=== PATIENT | female | born 1990 | race Caucasian/White ===

== ENCOUNTER 2017-08-05 20:35 | Emergency (ER) | payer OTHER ==
--- NOTE | 2017-08-05 22:27 | ER Document Report ---
ED Medical Screen (RME) - General Chief Complaint: Vaginal Bleeding Stated Complaint: VAGINAL BLEEDING Time Seen by Provider: 08/05/17 22:25 Mode of Arrival: Ambulatory Information source: Patient Notes: 27-year-old female presented ED for complaint of vaginal bleeding. She states she is 6 weeks and had a test done at [facility]. She states she started spotting on Wednesday it was just pink. Then last night she had some pink vaginal drainage again and that stopped tonight around 6 PM she started having red vaginal bleeding she has not yet soaked 1 pad. She states she has not had a ultrasound done this time. She states she is supposed to be 6 weeks . I have greeted and performed a rapid initial assessment of this patient. A comprehensive ED assessment and evaluation of the patient, analysis of test results and completion of medical decision making process will be conducted by an additional ED providers. TRAVEL OUTSIDE OF THE [place] IN LAST 30 DAYS: No - Related Data Allergies/Adverse Reactions: No Known Allergies Allergy (Verified 08/05/17 20:40) Past Medical History - Immunizations Immunizations up to date: Yes Hx Diphtheria, Pertussis, Tetanus Vaccination: Yes Physical Exam - Vital signs Vitals: Temp Pulse Resp BP Pulse Ox 98.9 F 83 20 132/76 H 100 08/05/17 21:11 08/05/17 21:11 08/05/17 21:11 08/05/17 21:11 08/05/17 21:11 Course - Vital Signs Vital signs: Temp Pulse Resp BP Pulse Ox 98.9 F 83 20 132/76 H 100 08/05/17 21:11 08/05/17 21:11 08/05/17 21:11 08/05/17 21:11 08/05/17 21:11 Doctor's Discharge - Discharge Referrals: PATSY FARRAR NP [Primary Care Provider] - Follow up as needed
[2017-08-05 23:06] LABS: ABSOLUTE BASOPHILS # (AUTO) 0.1 10^3/uL (0.0-0.2); ABSOLUTE EOSINOPHILS # (AUTO) 0.1 10^3/uL (0.0-0.6); ABSOLUTE LYMPHOCYTES (AUTO) 2.3 10^3/uL (0.5-4.7); ABSOLUTE MONOCYTES (AUTO) 0.5 10^3/uL (0.1-1.4); ABSOLUTE NEUT (AUTO) 6.2 10^3/uL (1.7-8.2); BASOPHILS % (AUTO) 0.6 % (0-2); EOSINOPHILS % (AUTO) 1.2 % (0-6); HEMATOCRIT 41.8 % (36.0-47.0); HEMOGLOBIN 14.3 g/dL (12.0-15.5); LYMPHOCYTES % (AUTO) 25.4 % (13-45); MEAN CORPUSCULAR HEMOGLOBIN 30.1 pg (27.0-33.4); MEAN CORPUSCULAR HGB CONC 34.2 g/dL (32.0-36.0); MEAN CORPUSCULAR VOLUME 88 fl (80-97); PLATELET COUNT 339 10^3/uL (150-450); RED BLOOD COUNT 4.76 10^6/uL (3.72-5.28); RED CELL DISTRIBUTION WIDTH 13.4 % (11.5-14.0); SEGMENTED NEUTROPHILS % (AUTO) 67.8 % (42-78); TOTAL CELLS COUNTED % (AUTO) 100 %; WHITE BLOOD COUNT 9.1 10^3/uL (4.0-10.5)
[2017-08-05 23:09] LABS: APPEARANCE,URINE CLEAR; BILIRUBIN,URINE NEGATIVE (NEGATIVE); COLOR,URINE YELLOW; GLUCOSE, URINE NEGATIVE (NEGATIVE); KETONES,URINE 20 mg/dL (NEGATIVE); LEUKOCYTE ESTERASE,URINE NEGATIVE (NEGATIVE); NITRITE,URINE NEGATIVE (NEGATIVE); PROTEIN,URINE NEGATIVE (NEGATIVE); URINE SPECIFIC GRAVITY 1.015; UROBILINOGEN,URINE NEGATIVE mg/dL (<2.0)
--- NOTE | 2017-08-06 01:04 | RADIOLOGY REPORT (SQ) ---
EXAM DESCRIPTION: CLINICAL HISTORY: 27 years Female preg+ bleeding COMPARISON: None. TECHNIQUE: Transabdominal duplex imaging performed to evaluate the pelvis. FINDINGS: Cervix measures 2.8 cm. Uterus measures 7.6 x 3.5 cm. Small intrauterine gestational sac is noted measuring 0.9 cm. No pole. Limited exam secondary to retroverted uterus and patient body habitus. Neither ovary is visualized. IMPRESSION: Limited exam secondary to body habitus Intrauterine gestational sac corresponding to five weeks five days without pole noted. Physes are consistent with intrauterine of uncertain viability. Recommend follow-up in one week
--- NOTE | 2017-08-06 01:46 | ER Document Report ---
ED General - General Chief Complaint: Vaginal Bleeding Stated Complaint: VAGINAL BLEEDING Time Seen by Provider: 08/05/17 22:25 Mode of Arrival: Ambulatory TRAVEL OUTSIDE OF THE [place] IN LAST 30 DAYS: No - HPI Patient complains to provider of: Vaginal bleeding Notes: Patient coming in for evaluation of vaginal bleeding. Patient is a with a miscarriage in the past. Patient is leaving for approximate 24 hours. Patient states no heavy bleeding. Patient denies any recent abdominal trauma denies any recent sexual. Patient resting comfortably upon my evaluation. Denies fevers chills nausea vomiting diarrhea. - Related Data Allergies/Adverse Reactions: No Known Allergies Allergy (Verified 08/05/17 20:40) Past Medical History - General Information source: Patient Last Menstrual Period: 06/25/17 - Social History Smoking Status: Never Smoker Chew tobacco use (# tins/day): No Frequency of alcohol use: Rare Drug Abuse: None Family History: Reviewed & Not Pertinent Patient has suicidal ideation: No Patient has homicidal ideation: No Renal/ Medical History: Denies: Hx Peritoneal Dialysis Past Surgical History: Reports: Hx Breast Surgery - Immunizations Immunizations up to date: Yes Hx Diphtheria, Pertussis, Tetanus Vaccination: Yes Review of Systems - Review of Systems Constitutional: No symptoms reported EENT: No symptoms reported Cardiovascular: No symptoms reported Respiratory: No symptoms reported Gastrointestinal: No symptoms reported Genitourinary: No symptoms reported Female Genitourinary: Vaginal bleeding Musculoskeletal: No symptoms reported Skin: No symptoms reported Hematologic/Lymphatic: No symptoms reported Neurological/Psychological: No symptoms reported -: Yes All other systems reviewed and negative Physical Exam - Vital signs Vitals: Temp Pulse Resp BP Pulse Ox 98.9 F 83 20 132/76 H 100 08/05/17 21:11 08/05/17 21:11 08/05/17 21:11 08/05/17 21:11 08/05/17 21:11 Interpretation: Normal - General General appearance: Appears well, Alert - HEENT Head: Normocephalic, Atraumatic Eyes: Normal Pupils: PERRL - Respiratory Respiratory status: No respiratory distress Chest status: Nontender Breath sounds: Normal Chest palpation: Normal - Cardiovascular Rhythm: Regular Heart sounds: Normal auscultation Murmur: No - Abdominal Inspection: Normal Distension: No distension Bowel sounds: Normal Tenderness: Nontender Organomegaly: No organomegaly - Back Back: Normal, Nontender - Extremities General upper extremity: Normal inspection, Nontender, Normal color, Normal ROM , Normal temperature General lower extremity: Normal inspection, Nontender, Normal color, Normal ROM , Normal temperature, Normal weight bearing. No: Kishan's sign - Neurological Neuro grossly intact: Yes Cognition: Normal Orientation: AAOx4 [place] Coma Scale Eye Opening: Spontaneous [place] Coma Scale Verbal: Oriented [place] Coma Scale Motor: Obeys Commands [place] Coma Scale Total: 15 Speech: Normal Motor strength normal: LUE, RUE, LLE, RLE Sensory: Normal - Psychological Associated symptoms: Normal affect, Normal mood - Skin Skin Temperature: Warm Skin Moisture: Dry Skin Color: Normal Course - Re-evaluation Re-evalutation: 08/06/17 03:54 At this time ultrasound shows IUP 5 weeks 5 days no cardiac activity seen at this time. Patient's beta-hCG is approximately 25,000. Explained patient that she will need to follow-up in 48 hours for repeat beta hCG testing. Patient states understanding. Patient was given a lab slip patient was discharged home - Vital Signs Vital signs: Temp Pulse Resp BP Pulse Ox 98.9 F 91 16 116/60 100 08/05/17 21:11 08/06/17 02:00 08/06/17 02:00 08/06/17 02:00 08/06/17 02:00 - Laboratory Result Diagrams: 08/05/17 22:50 Laboratory results interpreted by me: 08/05/17 08/05/17 22:50 22:50 Beta HCG, Quant 15528.00 H Urine Ketones 20 H Urine HCG, Qual POSITIVE H Discharge - Discharge Clinical Impression: Vaginal bleeding in patient at less than 20 weeks gestation Condition: Good Disposition: HOME, SELF-CARE Instructions: Bleeding During Early ([facility]) Additional Instructions: Your evaluation today shows a within the uterus is approximate 5 weeks 5 days. Your hormone level does confirm this. At this time due to have increased risk of miscarrying will recommend pelvic rest nothing inside the vagina no sex no toys no tampons. Please continue vitamins. Used a nausea medication as needed for nausea Please follow-up in the next 48 hours for repeat blood testing return to the ER if symptoms worsen For nausea and vomiting during I recomment: Start with 10-12.5 mg of pyridoxine (vitamin B6) three times a day for 2 days. If not fully effective, Increase to 12.5 mg of pyridoxine four times a day for 2 days. If not fully effective, Increase to 25 mg of pyridoxine three times a day for 2 days. If not fully effective, Continue 25 mg pyridoxine 3 times a day, and add 12.5 mg of doxylamine before bedtime each day for 2 days. If not fully effective, Continue 25 mg pyridoxine 3 times a day, and take 12.5 mg of doxylamine twice a day. If not fully effective, Continue 25 mg pyridoxine 3 times a day, and take 12.5 mg of doxylamine three times a day. If not fully effective, Continue 25 mg pyridoxine 3 times a day, and 12.5 mg of doxylamine 3 times a day , while adding Emetrol, one to two tablespoons (15-30 cc) taken once or twice a day as needed. (Emetrol is an [id number] mixture of sugar syrups and phosphoric acid [phosphorylated carbohydrate solution]) that acts by soothing the actual wall of the gastrointestinal tract). If not fully effective, Consult with your doctor. Prescriptions: Metoclopramide HCl [Reglan] 5 mg PO Q6 #30 tablet Forms: Follow-Up Laboratory Testing Referrals: PATSY FARRAR NP [NURSE PRACTITIONER] - Follow up as needed
[2017-08-06 02:48] VITALS: BP 116/60
== END 2017-08-06 02:48 | disposition home or self-care (01) ==
LOC: ER 20:35
DX: O20.9 Hemorrhage in early pregnancy, unspecified (principal); Z3A.01 Less than 8 weeks gestation of pregnancy
CPT/HCPCS: 36415; 76817; 81001; 81025; 84702; 85025; 86900; 86901; 93976; 99284

== ENCOUNTER 2017-09-30 07:53 | Emergency (ER) | payer OTHER ==
--- NOTE | 2017-09-30 08:30 | ER Document Report ---
ED General - General Chief Complaint: Vaginal Bleeding Stated Complaint: VAGINAL BLEEDING Time Seen by Provider: 09/30/17 08:29 Mode of Arrival: Ambulatory Information source: Patient TRAVEL OUTSIDE OF THE [place] IN LAST 30 DAYS: No - HPI Notes: 27-year-old female 2 para 0 presents to the ED for evaluation of vaginal bleeding and nausea after she took Cytotec 6 days ago. Patient was with twins. This is the first time she tried Cytotec. She was concerned about hemorrhages due to her mother having. Denies being on blood thinners. LMP was at the end of June. Patient was told she miscarried on August 06. Patient was evaluated by [facility] in [place], patient refused a D &C, was willing to try cycotec. Denies fevers, chills, chest pain,palpitations , shortness of breath, dyspnea, nausea, vomiting, diarrhea, abdominal pain, hematuria,blurred vision, double vision, loss of vision, speech changes, LH, dizziness, syncope, headaches, wheezing, ST, URI, neck pain, weakness, bowel or bladder dysfunction, saddle anesthesia, numbness or tingling in bilateral upper or lower extremities equally, muscle paralysis, weakness in bilateral upper or lower extremities equally or rash. Denies IV drug use. - Related Data Allergies/Adverse Reactions: No Known Allergies Allergy (Verified 09/30/17 07:54) Past Medical History - General Information source: Patient - Social History Smoking Status: Never Smoker Chew tobacco use (# tins/day): No Frequency of alcohol use: None Drug Abuse: None Family History: Reviewed & Not Pertinent Patient has suicidal ideation: No Patient has homicidal ideation: No Renal/ Medical History: Denies: Hx Peritoneal Dialysis Past Surgical History: Reports: Hx Breast Surgery - Immunizations Immunizations up to date: Yes Hx Diphtheria, Pertussis, Tetanus Vaccination: Yes Review of Systems - Review of Systems Constitutional: No symptoms reported EENT: No symptoms reported Cardiovascular: No symptoms reported Respiratory: No symptoms reported Gastrointestinal: No symptoms reported Genitourinary: No symptoms reported Female Genitourinary: See HPI Musculoskeletal: No symptoms reported Skin: No symptoms reported Hematologic/Lymphatic: No symptoms reported Neurological/Psychological: No symptoms reported Physical Exam - Vital signs Vitals: Temp Pulse Resp BP Pulse Ox 98.0 F 76 20 125/70 100 09/30/17 08:03 09/30/17 08:03 09/30/17 08:03 09/30/17 08:03 09/30/17 08:03 - Notes Notes: PHYSICAL EXAMINATION: GENERAL: Well-appearing, well-nourished and in no acute distress. HEAD: Atraumatic, normocephalic. EYES: Pupils equal round and reactive to light, extraocular movements intact, conjunctiva are normal. ENT: Nares patent, oropharynx clear without exudates. Moist mucous membranes. NECK: Normal range of motion, supple without lymphadenopathy LUNGS: Breath sounds clear to auscultation bilaterally and equal. No wheezes rales or rhonchi. HEART: Regular rate and rhythm without murmurs ABDOMEN: Soft, nontender, nondistended abdomen. No guarding, no rebound. No masses appreciated. Female : External genitalia without erythema, exudate or discharge but noted bleeding. Vaginal vault is without discharge. Cervix is of normal color without lesion. There is bleeding noted. Uterus is noted to be of normal size and nontender. No cervical motion tenderness is seen. No masses are palpated. os closed, no adnexal tenderness or mass Musculoskeletal: Normal range of motion, no pitting or edema. No cyanosis. NEUROLOGICAL: Cranial nerves grossly intact. Normal speech, normal gait. Normal sensory, motor exams PSYCH: Normal mood, normal affect. SKIN: Warm, Dry, normal turgor, no rashes or lesions noted. Course - Re-evaluation Re-evalutation: 09/30/17 09:29 27 yr old female is afebrile, vitals stable and in no distress presents for vaginal bleeding after miscarrying a month ago. CBC negative for any anemia. CMP unremarkable. hcg quant 189.46 on 08/05/17 hcg quant was 24,658. Cultures unremarkable. GC negative. she has an appointment today with [facility]. Discussed patient may have to have a D&C. Advised pelvic rest. after performing a Medical Screening Examination, I estimate there is LOW risk for ACUTE APPENDICITIS, BOWEL OBSTRUCTION, ACUTE CHOLECYSTITIS, PERFORATED DIVERTICULITIS, INCARCERATED HERNIA, PANCREATITIS, PELVIC INFLAMMATORY DISEASE, PERFORATED ULCER, ECTOPIC , or TUBO-OVARIAN ABSCESS, thus I consider the discharge disposition reasonable. Also, there is no evidence or peritonitis , sepsis, or toxicity. I have reevaluated this patient multiple times and no significant life threatening changes are noted. The patient and I have discussed the diagnosis and risks, and we agree with discharging home with close follow-up with the understanding that symptoms and presentations can change. We also discussed returning to the Emergency Department immediately if new or worsening symptoms occur. We have discussed the symptoms which are most concerning (e.g., bloody stool, fever, changing or worsening pain, vomiting) that necessitate immediate return. - Vital Signs Vital signs: Temp Pulse Resp BP Pulse Ox 98.6 F 76 16 118/72 100 09/30/17 09:48 09/30/17 09:48 09/30/17 09:48 09/30/17 09:48 09/30/17 09:48 - Laboratory Result Diagrams: 09/30/17 08:37 Laboratory results interpreted by me: 09/30/17 09/30/17 09/30/17 08:24 08:37 08:37 Hct 35.4 L Seg Neutrophils % 79.7 H Beta HCG, Quant 189.46 H Urine Blood LARGE H Discharge - Discharge Clinical Impression: Miscarriage Condition: Stable Disposition: HOME, SELF-CARE Instructions: Miscarriage ([facility]) Additional Instructions: Miscarriage You have had a miscarriage (medically called a "spontaneous "). The miscarriage occurred because the fetus did not develop normally. There is nothing you did to cause it, and nothing you could have done to prevent it. About one in four ends in miscarriage. You should rest in bed for two or three days. As there is some risk of infection of the uterus, you should not have intercourse for one week (or until okayed by your physician). You might not have a period for six to eight weeks. You should not become again for at least three months -- the uterus requires time to get back to normal. Call the doctor or return for re-examination if there is heavy or persistent vaginal bleeding, fever, foul discharge, continued cramping pains, or abdominal pain. Follow-up with the [facility] is you have an appointment today. CBC shows that you are not anemic. He experience any lightheadedness, dizziness, chest pain, shortness of breath, worsening vaginal bleeding return to the emergency room. Return immediately for any new or worsening symptoms. Follow up with primary care provider, call tomorrow to make followup appointment. Referrals: MIKE MAJOR MD [ACTIVE STAFF] - Follow up tomorrow ARIANA JONES MD [COMMUNITY BASED STAFF] - Follow up as needed
[2017-09-30 08:38] LABS: APPEARANCE,URINE CLEAR; BILIRUBIN,URINE NEGATIVE (NEGATIVE); COLOR,URINE YELLOW; GLUCOSE, URINE NEGATIVE (NEGATIVE); KETONES,URINE NEGATIVE (NEGATIVE); LEUKOCYTE ESTERASE,URINE NEGATIVE (NEGATIVE); NITRITE,URINE NEGATIVE (NEGATIVE); PROTEIN,URINE NEGATIVE (NEGATIVE); URINE SPECIFIC GRAVITY 1.011; UROBILINOGEN,URINE NEGATIVE mg/dL (<2.0)
[2017-09-30 08:53] LABS: ABSOLUTE EOSINOPHILS # (AUTO) 0.1 10^3/uL (0.0-0.6); ABSOLUTE LYMPHOCYTES (AUTO) 1.4 10^3/uL (0.5-4.7); ABSOLUTE MONOCYTES (AUTO) 0.4 10^3/uL (0.1-1.4); ABSOLUTE NEUT (AUTO) 7.6 10^3/uL (1.7-8.2); BASOPHILS % (AUTO) 0.3 % (0-2); EOSINOPHILS % (AUTO) 0.9 % (0-6); HEMATOCRIT 35.4 % (36.0-47.0); HEMOGLOBIN 12.1 g/dL (12.0-15.5); LYMPHOCYTES % (AUTO) 15.1 % (13-45); MEAN CORPUSCULAR HEMOGLOBIN 29.9 pg (27.0-33.4); MEAN CORPUSCULAR HGB CONC 34.3 g/dL (32.0-36.0); MEAN CORPUSCULAR VOLUME 87 fl (80-97); PLATELET COUNT 361 10^3/uL (150-450); RED BLOOD COUNT 4.05 10^6/uL (3.72-5.28); RED CELL DISTRIBUTION WIDTH 13.3 % (11.5-14.0); SEGMENTED NEUTROPHILS % (AUTO) 79.7 % (42-78); TOTAL CELLS COUNTED % (AUTO) 100 %; WHITE BLOOD COUNT 9.5 10^3/uL (4.0-10.5)
[2017-09-30 08:56] LABS: PROTHROMBIN TIME 12.6 SEC (11.4-15.4)
[2017-09-30 09:05] LABS: T.VAGINALIS (WET MOUNT) NO TRICHOMONAS SEEN; WBCS (WET MOUNT) RARE WBCS SEEN; YEAST (WET MOUNT) NO YEAST SEEN
[2017-09-30] MEDS ORDERED: ONDANSETRON HCL INJ/PF 4 MG/2 ML SDV IV ONE (09:39)
[2017-09-30 09:50] VITALS: BP 118/72
[2017-09-30 10:48] LABS: CHLAM PCR NOT DETECTED (NOT DETECT); GON PCR NOT DETECTED (NOT DETECT)
== END 2017-09-30 09:50 | disposition home or self-care (01) ==
LOC: ER 07:53
DX: O03.9 Complete or unspecified spontaneous abortion without complication (principal); N93.8 Other specified abnormal uterine and vaginal bleeding; R11.0 Nausea
CPT/HCPCS: 36415; 81001; 84702; 85025; 85610; 85730; 87210; 87491; 87591; 99284

== ENCOUNTER 2019-02-06 01:53 | Inpatient (IN) | payer OTHER ==
[2019-02-06 02:18] LABS: APPEARANCE,URINE CLEAR; BILIRUBIN,URINE NEGATIVE (NEGATIVE); COLOR,URINE YELLOW; GLUCOSE, URINE NEGATIVE (NEGATIVE); KETONES,URINE NEGATIVE (NEGATIVE); LEUKOCYTE ESTERASE,URINE NEGATIVE (NEGATIVE); NITRITE,URINE NEGATIVE (NEGATIVE); PROTEIN,URINE NEGATIVE (NEGATIVE); URINE SPECIFIC GRAVITY 1.009; UROBILINOGEN,URINE NEGATIVE mg/dL (<2.0)
[2019-02-06 02:33] LABS: URINE AMPHETAMINES SCREEN NEGATIVE; URINE BARBITURATES SCREEN NEGATIVE; URINE BENZODIAZEPINES SCREEN NEGATIVE; URINE COCAINE SCREEN NEGATIVE; URINE MARIJUANA (THC) SCREEN NEGATIVE; URINE METHADONE SCREEN NEGATIVE; URINE PHENCYCLIDINE SCREEN NEGATIVE
--- NOTE | 2019-02-06 03:58 | Non Stress Test Report ---
Non Stress Test Datetime Report Generated by CPN: 02/06/2019 03:58 DEMOGRAPHIC EGA NST: 37.6 INDICATION Indication for Study (NST) Other: LC URINE RESULTS Urine Protein, NST: Negative Urine Ketones - NST: Negative Urine Glucose - NST: Negative Urine Blood - NST: Positive MONITORING Monitor Explained: Monitor Explained; Test Explained; Patient Verbalized Understanding Time on Monitor: 02/06/2019 02:35 Time off Monitor: 02/06/2019 03:48 NST Duration: 73 NST INTERVENTIONS NST Interventions: PO Hydration; Reposition Patient Physician Notified NST: Younger BABY A: [id number] BABY A Movement : Present Contraction Frequency : 1-4 FHR Baseline : 135 Accelerations : 15X15 Decelerations : None Variability : Moderate 6-25bpm NST Review: Meets Criteria for Reactive NST NST Review and Verified By : stephon RAMIREZT Results: Reactive NST REPORT Report Trigger: Send Report
[2019-02-06] MEDS ORDERED: OXYTOCIN/NORMAL SALINE 20 UNIT/1,000 ML RTUINJ ONE (05:21)
[2019-02-06] MEDS ORDERED: LIDOCAINE 1% INJ-PF (10 MG/ML) 30 ML SDV ONE (05:21)
[2019-02-06] MEDS ORDERED: MISOPROSTOL 0.2 MG TABLET ONE (05:21)
[2019-02-06] MEDS ORDERED: OXYTOCIN 10 UNIT/ML VIAL ONE (05:21)
[2019-02-06] MEDS: RINGERS SOLUTION,LACTATED 1,000 ML IV PRN ×2 (05:30→09:54)
[2019-02-06] MEDS ORDERED: MAG HYDROX/AL HYDROX/SIMETH SUSP 30 ML UDCUP ONE (05:33)
[2019-02-06 05:40] LABS: ABSOLUTE EOSINOPHILS # (AUTO) 0.1 10^3/uL (0.0-0.6); ABSOLUTE LYMPHOCYTES (AUTO) 2.1 10^3/uL (0.5-4.7); ABSOLUTE MONOCYTES (AUTO) 0.5 10^3/uL (0.1-1.4); ABSOLUTE NEUT (AUTO) 8.8 10^3/uL (1.7-8.2); BASOPHILS % (AUTO) 0.1 % (0-2); EOSINOPHILS % (AUTO) 0.6 % (0-6); HEMATOCRIT 34.5 % (36.0-47.0); HEMOGLOBIN 11.8 g/dL (12.0-15.5); LYMPHOCYTES % (AUTO) 18.1 % (13-45); MEAN CORPUSCULAR HEMOGLOBIN 30.8 pg (27.0-33.4); MEAN CORPUSCULAR HGB CONC 34.3 g/dL (32.0-36.0); MEAN CORPUSCULAR VOLUME 90 fl (80-97); MONOCYTES % (AUTO) 4.1 % (3-13); PLATELET COUNT 305 10^3/uL (150-450); RED BLOOD COUNT 3.85 10^6/uL (3.72-5.28); RED CELL DISTRIBUTION WIDTH 13.7 % (11.5-14.0); SEGMENTED NEUTROPHILS % (AUTO) 77.1 % (42-78); TOTAL CELLS COUNTED % (AUTO) 100 %; WHITE BLOOD COUNT 11.4 10^3/uL (4.0-10.5)
--- NOTE | 2019-02-06 05:42 | Admission Physical ---
Datetime Report Generated by CPN: 02/06/2019 05:42 CURRENT ADMISSION Chief Complaint Other: vaginal bleeding Indication for Induction: Not Applicable Admit Impression : Term, Intrauterine ; No Active Labor; Ruptured Membranes Admit Plan: Admit to Unit; Initiate Labor Protocol ALLERGIES Medication Allergies: No Medication Allergies: No Known Allergies (02/06/2019) Latex: No Latex Allergies OBSTETRICAL HISTORY EDC: 02/21/2019 00:00 : 3 Para: 0 Gestational Diabetes: No Rh Sensitization: No Incompetent Cervix: No ADELE: No Infertility: No ART Treatment: No Uterine Anomaly: No IUGR: No Hx Previous C/S: No Macrosomia: No Hx Loss/Stillborn: No PIH: No Hx : No Placenta Previa/Abruption: No Depression/PP Depression: No PTL/PROM: No Post Hemorrhage: No Current Procedures: Ultrasound Obstetrical History Comments: G1: may 2009 SAB 7 weeks G2: August 2017 SAB 7 weeks-twins per records G3: current no issues. Pt. reports weekly NST and U/S due to pt habitus SEE RECORDS Alcohol: No Marijuana : No Cocaine: No Other Illicit Drugs: No Cigarettes: Never Smoker. [id number] MEDICAL HISTORY Diabetes: No Blood Transfusion: No Pulmonary Disease (Asthma, TB): No Breast Disease: No Hypertension: No Merchandise Buyer Surgery: No Heart Disease: No Hosp/Surgery: No Autoimmune Disorder: No Anesthetic Complications: No Kidney Disease: No Abnormal Pap Smear: No Neuro/Epilepsy: No Psychiatric Disorders: No Other Medical Diseases: No Hepatitis/Liver Disease: No Significant Family History: No Varicosities/Phlebitis: No Trauma/Violence : No Thyroid Dysfunction: No INFECTIOUS HISTORY Gonorrhea: No Genital Herpes: No Chlamydia: No Tuberculosis: No Syphilis: No Hepatitis: No HIV/AIDS Exposure: No Rash or Viral Illness: No HPV: No PHYSICAL EXAM General: Normal HEENT: Normal Neurologic: Normal Thyroid: Normal Heart: Normal Lungs: Normal Breast: Normal Back: Normal Abdomen: Normal Genitourinary Exam: Normal Extremities: Normal DTRs: Normal Pelvic Type: Adequate Vital Signs: Reviewed; Within Normal Limits VAGINAL EXAM Dilatation: 1-2 Effacement: 100 Station: -1 Contraction Comments: q 3 min MEMBRANES Membranes: Ruptured Amniotic Fluid Color: Meconium, Light FETUS A Monitoring: External US FHR- Baseline: 120s Variability: Moderate 6-25bpm Accelerations: 15X15 Decelerations: None FHR Category: Category I Admit Comment: This w/ an IUP @37-6/7 wks presented to L_D c/o vaginal bleeding. She reports good movement. Her cervix was 1/90%/-1. The blood was more than likely was secondary to cervical change. She walked for an hour to see if her cervix would change. She then had SROM--meconium noted and minor cervical change. GBS Neg. She has PNC at [place], but was planning to deliver at [facility]. She has no co-morbidities. PLANS FOR LABOR AND DELIVERY Other Pain Management Plans: unsure Feeding Preference: Formula Benefit of Breast Feed Discussed: Yes Circumcision: No INFORMED CONSENT Signature: with User ID: [email or web address]
[2019-02-06] MEDS ORDERED: NALBUPHINE HCL INJ 10 MG/1 ML AMPULE ONE ×2 (08:57→10:53)
[2019-02-06] MEDS ORDERED: NALBUPHINE HCL INJ 10 MG/1 ML AMPULE INJ ONE ×3 (09:00→10:58)
[2019-02-06] MEDS ORDERED: METHYLERGONOVINE MALEATE INJ/PF 0.2 MG/1 ML AMPULE ONE (10:49)
[2019-02-06] MEDS ORDERED: METHYLERGONOVINE MALEATE INJ/PF 0.2 MG/1 ML AMPULE IV ONE (10:57)
[2019-02-06] MEDS ORDERED: DIPH/PERTUSS(ACELL)/TETANUS VAC/PF 0.5 ML SYR (>=10YO) IM PRN (11:26)
[2019-02-06] MEDS ORDERED: ACETAMINOPHEN 650 MG SUPP.RECT PR PRN (11:26)
[2019-02-06] MEDS ORDERED: PSEUDOEPHEDRINE HCL 30 MG TABLET PO PRN (11:26)
[2019-02-06] MEDS ORDERED: MAGNESIUM HYDROXIDE SUSP 30 ML UDCUP PO PRN (11:26)
[2019-02-06] MEDS ORDERED: MEASLES,MUMPS&RUBELLA VACC/PF 0.5 ML VIAL SUBCUT PRN (11:26)
[2019-02-06] MEDS ORDERED: PROMETHAZINE HCL 25 MG TABLET PO PRN (11:26)
[2019-02-06] MEDS ORDERED: PROMETHAZINE HCL INJ 25 MG/1 ML VIAL IV PRN (11:26)
[2019-02-06] MEDS ORDERED: DIBUCAINE 1% OINTMENT 56 GM TP PRN (11:26)
[2019-02-06] MEDS ORDERED: MISOPROSTOL 0.2 MG TABLET PR PRN (11:26)
[2019-02-06] MEDS ORDERED: PROMETHAZINE HCL 25 MG SUPP.RECT PR PRN (11:26)
[2019-02-06] MEDS ORDERED: OXYTOCIN/NORMAL SALINE 20 UNIT/1,000 ML RTUINJ IV PRN (11:26)
[2019-02-06] MEDS ORDERED: DIPHENHYDRAMINE HCL 25 MG CAPSULE PO PRN (11:26)
[2019-02-06] MEDS ORDERED: GLYCERIN/WITCH HAZEL LEAF 1 EACH MED..WIPE TP PRN (11:26)
[2019-02-06] MEDS ORDERED: NA PHOS,M-B/NA PHOS,DI-BA (ADULT) 133 ML ENEMA PR PRN (11:26)
[2019-02-06] MEDS ORDERED: METHYLERGONOVINE MALEATE INJ/PF 0.2 MG/1 ML AMPULE IM PRN (11:26)
--- NOTE | 2019-02-06 12:00 | Delivery Summary ---
Del Sum A-C Datetime Report Generated by CPN: 02/06/2019 11:59 DELIVERY PERSONNEL DELIVERY PERSONNEL: [id number] Delivery Doctor:: Shelia Silvestre CNM Labor and Delivery Nurse:: Genna Lopez RNauto body technician Nurse:: JAYLON SOSA RN National Service Officer/TRAINING ASSISTANT: Raysa Talley, RETREAD OPERATOR Additional Personnel: : Sania Wheatley RN MATERNAL INFORMATION Delivery Anesthesia: None Medications After Delivery: Pitocin Bolus-Please Comment; Methergine 0.2mg IM; Cytotec 1000mcg Per Rectum/Vagina; Other-Please Comment Meds After Delivery Comment: 20unit PITOCIN BOLUS NUBAIN 10MG Delivery QBL: 1086 Delivery QBL Comment: +600 FROM DRAPE TOTAL OF 1086 Maternal Complications: Hemorrhage Provider Comments: Patient progressed quickly while waiting on epidural, complete, started pushing, bradycardia and return to baseline, Dr. Liang asked to come to unit for possible VE, pt was a great pusher and viable female from OA to INESSA over midwline and vaginal lacerations, baby placed on mothers abd, cord clamped and was cut by father after 3 minutes, large amount of thick meconium with delivery. spont delivery of grossly normal large placenta, 3 VC, pt given Nubain 10mg for repair, uterine atony and PPH, massage, Pitocin IV, cytotec 1000mcg, Methergine 0.2 mg IM, laceration repaired, rectum patent, cervix intact, vaginsa checked for gauze and none was found. Baby and mom remain in recovery instable condition (Annotations: Data stored by CPN on behalf of user) LABOR SUMMARY EDC: 02/21/2019 00:00 No. Babies in Womb: 1 Attempted: No Labor Anesthesia: IV Sedation LABOR INFORMATION Reason for Induction: Not Applicable Onset of Labor: 02/06/2019 04:42 Complete Dilatation: 02/06/2019 10:10 Oxytocin: N/A Group B Beta Strep: negative Antibiotics # of Doses: 0 Steroids Given: None Reason Steroids Not Administered: Not Applicable Other Reason Not Administered: N/A MEMBRANES Membranes Rupture Method: Spontaneous Rupture of Membranes: 02/06/2019 04:42 Length of Rupture (hr): 5.95 Amniotic Fluid Color: Light Meconium Amniotic Fluid Amount: Moderate Amniotic Fluid Odor: Normal STAGES OF LABOR Stage 1 hr: 5 Stage 1 min: 28 Stage 2 hr: 0 Stage 2 min: 29 Stage 3 hr: 0 Stage 3 min: 7 Total Time in Labor hr: 6 Total Time in Labor min: 4 VAGINAL DELIVERY Episiotomy: None Laceration #1: Perineal; Vaginal Laceration Extension #1: Second Degree Laceration Repair: Yes Laceration Repair Note: 2-0 chromic x 2 20cc 1% Lidocaine Sharps Count Correct: N/A CSECTION DELIVERY Primary Indication: N/A BABY A INFORMATION Infant Delivery Date/Time: 02/06/2019 10:39 Method of Delivery: Vaginal Born in Route : No : N/A Forceps: N/A Vacuum Extraction: N/A Shoulder Dystocia : No PRESENTATION/POSITION BABY A Presentation: Cephalic Cephalic Presentation: Vertex Vertex Position: Left Occipital Anterior Breech Presentation: N/A PLACENTA INFORMATION BABY A Placenta Delivery Time : 02/06/2019 10:46 Placenta Method of Delivery: Expressed Placenta Status: Delivered SCORES BABY A Heart Rate 1 min: >100 bpm Resp Effort 1 min: Good Cry Reflex Irritability 1 min: Cough or Sneeze or Pulls Away Muscle Tone 1 min: Active Motion Color 1 min: Body Searchlight, Extremities Blue Resuscitation Effort 1 min: Tactile Stimulation SCORE 1 MIN: 9 Heart Rate 5 min: >100 bpm Resp Effort 5 min: Good Cry Reflex Irritability 5 min: Cough or Sneeze or Pulls Away Muscle Tone 5 min: Active Motion Color 5 min: Body Searchlight, Extremities Blue Resuscitation Effort 5 min: Tactile Stimulation SCORE 5 MIN: 9 INFANT INFORMATION BABY A Gestational Age at Delivery: 37.6 Gestational Status: Early Term- 37- 38.6 Weeks Infant Outcome : Liveborn Infant Condition : Stable Sex: Female IDENTIFICATION BABY A Infant Verification Date/Time: 02/06/2019 10:39 ID Band Number: [id number] Mother's Name Verified: Yes RN Verifying : K. BROWN, RN R/ DANUTA, RN WEIGHT/LENGTH BABY A Infant Birthweight (gm): 3234 Weight (lb): 7 Weight (oz): 2 Length (in): 19.50 Infant Length (cm): 49.53 CORD INFORMATION BABY A No. Cord Vessels: 3 Nuchal Cord : N/A Cord Blood Taken: Yes-For Eval (Mom's Blood Type - or O+) Infant Suction: None ASSESSMENT BABY A Complications: Meconium Physical Findings at Delivery: Within Normal Limits Infant Respirations: Appears Normal Skin to Skin: Yes Skin to Skin Time (min): 45 Lead Java Software Engineer/ALS Called : No Infant Care By: LORENA TRUJILLO RN Transferred To: Remains with Mother BABY B INFORMATION : N/A
[2019-02-06] MEDS: IBUPROFEN 800 MG TABLET PO SCH ×2 (13:50→21:05)
[2019-02-06] MEDS: DOCUSATE SODIUM 100 MG CAPSULE PO SCH (17:21)
[2019-02-06] MEDS: FERROUS SULFATE 325 MG TABLET PO SCH (17:21)
[2019-02-06 17:24] LABS: HEMATOCRIT 28.4 % (36.0-47.0); HEMOGLOBIN 9.9 g/dL (12.0-15.5); MEAN CORPUSCULAR HGB CONC 34.7 g/dL (32.0-36.0); MEAN CORPUSCULAR VOLUME 89 fl (80-97); PLATELET COUNT 307 10^3/uL (150-450); RED BLOOD COUNT 3.19 10^6/uL (3.72-5.28); RED CELL DISTRIBUTION WIDTH 13.7 % (11.5-14.0); WHITE BLOOD COUNT 21.4 10^3/uL (4.0-10.5)
[2019-02-06] MEDS: ACETAMINOPHEN WITH CODEINE #3 TABLET PO PRN ×2 (17:24→23:31)
[2019-02-06] MEDS: FAMOTIDINE 20 MG TABLET PO SCH (21:05)
[2019-02-06] MEDS: BENZOCAINE/MENTHOL AEROSOL SPRAY 56 ML TOP PRN (23:27)
[2019-02-07] MEDS: IBUPROFEN 800 MG TABLET PO SCH ×3 (05:10→21:18)
[2019-02-07 07:02] LABS: HEMATOCRIT 23.4 % (36.0-47.0); HEMOGLOBIN 8.1 g/dL (12.0-15.5); MEAN CORPUSCULAR HEMOGLOBIN 31.6 pg (27.0-33.4); MEAN CORPUSCULAR HGB CONC 34.6 g/dL (32.0-36.0); MEAN CORPUSCULAR VOLUME 91 fl (80-97); PLATELET COUNT 243 10^3/uL (150-450); RED BLOOD COUNT 2.57 10^6/uL (3.72-5.28); RED CELL DISTRIBUTION WIDTH 13.9 % (11.5-14.0)
[2019-02-07] MEDS: FERROUS SULFATE 325 MG TABLET PO SCH ×2 (09:34→18:11)
[2019-02-07] MEDS: FAMOTIDINE 20 MG TABLET PO SCH ×2 (09:34→21:19)
[2019-02-07] MEDS: SENNOSIDES/DOCUSATE 8.6-50 MG 1 EACH TABLET PO SCH (09:34)
[2019-02-07] MEDS: DOCUSATE SODIUM 100 MG CAPSULE PO SCH ×2 (09:34→18:12)
[2019-02-07] MEDS: PRENATAL VITAMIN W DHA CAPSULE PO SCH (09:34)
--- NOTE | 2019-02-07 09:35 | PDOC PROGRESS REPORT ---
Subjective-OB Progress Note for:: 02/07/19 Subjective: Pt doing well, no concerns. She reports light bleeding, reg diet and voiding without difficulty. Physical Exam (OB) Vital Signs: Temp Pulse Resp BP Pulse Ox 97.6 F 86 16 142/64 H 100 02/07/19 08:04 02/07/19 08:04 02/07/19 08:04 02/07/19 08:04 02/07/19 08:04 Intake & Output 02/06/19 02/07/19 02/08/19 06:59 06:59 06:59 Intake Total 1000 Balance 1000 Weight 116.9 kg - Lochia Lochia Amount: Scant < 10 ml Lochia Color: Rubra/Red - Abdomen Description: Soft, Round Hernia Present: No Fundal Description: Firm, Midline Fundal Height: u/u - u/2 Objective-Diagnostic Laboratory: 02/07/19 06:46 02/06/19 02/07/19 17:10 06:46 WBC 21.4 H 9.0 RBC 3.19 L 2.57 L Hgb 9.9 L 8.1 L Hct 28.4 L 23.4 L MCV 89 91 MCH 31.0 31.6 MCHC 34.7 34.6 RDW 13.7 13.9 Plt Count 307 243 Assessment and Plan(PN) - Assessment and Plan (1) Delivery normal Is this a current diagnosis for this admission?: Yes (2) Obstetric vaginal laceration with second degree perineal laceration Is this a current diagnosis for this admission?: Yes - Time Spent with Patient Time with patient: Less than 15 minutes Medications reviewed and adjusted accordingly: Yes - Disposition Anticipated Discharge: Home Within: within 24 hours
[2019-02-07] MEDS: ACETAMINOPHEN WITH CODEINE #3 TABLET PO PRN (19:13)
[2019-02-08] MEDS: IBUPROFEN 800 MG TABLET PO SCH ×2 (05:14→14:03)
[2019-02-08] MEDS: FAMOTIDINE 20 MG TABLET PO SCH (09:11)
[2019-02-08] MEDS: FERROUS SULFATE 325 MG TABLET PO SCH (09:11)
[2019-02-08] MEDS: PRENATAL VITAMIN W DHA CAPSULE PO SCH (09:11)
[2019-02-08] MEDS: ACETAMINOPHEN WITH CODEINE #3 TABLET PO PRN (09:16)
[2019-02-08] MEDS: DOCUSATE SODIUM 100 MG CAPSULE PO SCH (09:48)
[2019-02-08] MEDS: SENNOSIDES/DOCUSATE 8.6-50 MG 1 EACH TABLET PO SCH (09:48)
--- NOTE | 2019-02-08 10:24 | PDOC DISCHARGE SUMMARY ---
Impression - Admit/DC Date/PCP Admission Date/Primary Care Provider: 02/06/19 05:07 Discharge Date: 02/08/19 - Discharge Diagnosis (1) Acute blood loss anemia Is this a current diagnosis for this admission?: Yes (2) Delivery normal Is this a current diagnosis for this admission?: Yes (3) Obstetric vaginal laceration with second degree perineal laceration Is this a current diagnosis for this admission?: Yes (4) hemorrhage Is this a current diagnosis for this admission?: Yes - Additional Information Resuscitation Status: Full Code Discharge Diet: As Tolerated, Regular Discharge Activity: Activity As Tolerated, Balance Activity w/Rest, No Lifting Over 10 Pounds, Pelvic Rest, No tub bath, Walk Frequently Prescriptions: Ibuprofen [Motrin 800 mg Tablet] 800 mg PO Q8HP PRN #20 tablet PRN Reason: For Pain Scale 1-3 Docusate Sodium [Colace 100 mg Capsule] 100 mg PO BID #60 capsule Ferrous Sulfate [Feosol 325 mg Tablet] 325 mg PO BID #60 tablet Home Medications: Vit,Calc76/Iron/Folic [Pnv 29-1 Tablet] 1 tab PO DAILY 02/06/19 Docusate Sodium [Colace 100 mg Capsule] 100 mg PO BID #60 capsule 02/08/19 Ferrous Sulfate [Feosol 325 mg Tablet] 325 mg PO BID #60 tablet 02/08/19 Ibuprofen [Motrin 800 mg Tablet] 800 mg PO Q8HP PRN #20 tablet 02/08/19 Results Laboratory Results: WBC 9.0 10^3/uL (4.0-10.5) 02/07/19 06:46 RBC 2.57 10^6/uL (3.72-5.28) L 02/07/19 06:46 Hgb 8.1 g/dL (12.0-15.5) L 02/07/19 06:46 Hct 23.4 % (36.0-47.0) L 02/07/19 06:46 MCV 91 fl (80-97) 02/07/19 06:46 MCH 31.6 pg (27.0-33.4) 02/07/19 06:46 MCHC 34.6 g/dL (32.0-36.0) 02/07/19 06:46 RDW 13.9 % (11.5-14.0) 02/07/19 06:46 Plt Count 243 10^3/uL (150-450) 02/07/19 06:46 Lymph % (Auto) 18.1 % (13-45) 02/06/19 05:12 [place] % (Auto) 4.1 % (3-13) 02/06/19 05:12 Eos % (Auto) 0.6 % (0-6) 02/06/19 05:12 Baso % (Auto) 0.1 % (0-2) 02/06/19 05:12 Absolute Neuts (auto) 8.8 10^3/uL (1.7-8.2) H 02/06/19 05:12 Absolute Lymphs (auto) 2.1 10^3/uL (0.5-4.7) 02/06/19 05:12 Absolute Monos (auto) 0.5 10^3/uL (0.1-1.4) 02/06/19 05:12 Absolute Eos (auto) 0.1 10^3/uL (0.0-0.6) 02/06/19 05:12 Absolute Basos (auto) 0.0 10^3/uL (0.0-0.2) 02/06/19 05:12 Seg Neutrophils % 77.1 % (42-78) 02/06/19 05:12 Urine Color YELLOW 02/06/19 02:00 Urine Appearance CLEAR 02/06/19 02:00 Urine pH 7.0 (5.0-9.0) 02/06/19 02:00 Ur Specific [place] 1.009 02/06/19 02:00 Urine Protein NEGATIVE mg/dL (NEGATIVE) 02/06/19 02:00 Urine Glucose (UA) NEGATIVE mg/dL (NEGATIVE) 02/06/19 02:00 Urine Ketones NEGATIVE mg/dL (NEGATIVE) 02/06/19 02:00 Urine Blood LARGE (NEGATIVE) H 02/06/19 02:00 Urine Nitrite NEGATIVE (NEGATIVE) 02/06/19 02:00 Urine Bilirubin NEGATIVE (NEGATIVE) 02/06/19 02:00 Urine Urobilinogen NEGATIVE mg/dL (<2.0) 02/06/19 02:00 Ur Leukocyte Esterase NEGATIVE (NEGATIVE) 02/06/19 02:00 Urine Ascorbic Acid NEGATIVE (NEGATIVE) 02/06/19 02:00 Urine Opiates Screen NEGATIVE 02/06/19 02:00 Urine Methadone Screen NEGATIVE 02/06/19 02:00 Ur Barbiturates Screen NEGATIVE 02/06/19 02:00 Ur Phencyclidine Scrn NEGATIVE 02/06/19 02:00 Ur Amphetamines Screen NEGATIVE 02/06/19 02:00 U Benzodiazepines Scrn NEGATIVE 02/06/19 02:00 Urine Cocaine Screen NEGATIVE 02/06/19 02:00 U Marijuana (THC) Screen NEGATIVE 02/06/19 02:00 RPR NONREACTIVE (NONREACTIVE) 02/06/19 05:12 Blood Type O POSITIVE 02/06/19 05:12 Antibody Screen NEGATIVE 02/06/19 05:12
[2019-02-08 10:43] VITALS: BP 142/64
[2019-02-08] MEDS: BENZOCAINE/MENTHOL AEROSOL SPRAY 56 ML TOP PRN (14:04)
== END 2019-02-08 14:30 | disposition home or self-care (01) | DRG 806 ==
LOC: LC 01:53 → LR 05:07 → 2S 13:00
PROVIDERS: ADMIT Obstetrics & Gynecology; ATTEND Obstetrics & Gynecology
PROC: 10E0XZZ Delivery of Products of Conception, External Approach (ICD-10-PCS; principal; 2019-02-06)
PROC: 0KQM0ZZ Repair Perineum Muscle, Open Approach (ICD-10-PCS; 2019-02-06)
DX: O72.1 Other immediate postpartum hemorrhage (principal); D62 Acute posthemorrhagic anemia; Z37.0 Single live birth; O99.02 Anemia complicating childbirth; O70.1 Second degree perineal laceration during delivery; O77.0 Labor and delivery complicated by meconium in amniotic fluid; Z3A.37 37 weeks gestation of pregnancy
CPT/HCPCS: 36415; 59025; 80307; 81005; 85025; 85027; 86592; 86850; 86900; 86901; 94760; J2210; J2300; J2590; J3490